=== PATIENT | female | born 1980 | race Caucasian/White ===

== ENCOUNTER 2017-06-26 20:54 | Emergency (ER) | payer OTHER ==
[~2017-06-26] VITALS: Ht 180.3 cm; Wt 77.1 kg
[~2017-06-26 20:54] MED LIST: ALBU90OI INH; AMIT50 PO; AMOX875 PO; AZIT250 PO; BENTYL10 MG PO; BUPR1 PO; Bactrim Ds Tab1 EACH PO; Buspirone HCl7.5 MG PO; CEPH500 PO; CIPR500 PO; CRUTCH4 USE; CYCL10 PO; Cipro500 MG PO; DIAZ5 PO; DULO30 PO; HYDACE5 PO; HYDCOR2.5C PR; HYDPAM25 PO; HYDPAM50 PO; IBUP800 PO; Keflex500 MG PO; LORA1 PO; METPRE4DP PO; Miconazole 31 EACH VAG; NAPR500 PO; NAPR550 PO; NITR100CA PO; OMEP20ER PO; OXYACE5T PO; OXYC15ER PO; OXYC30ER PO; PENVK500 PO; PERM5TC TOP; PHENA100 PO; PHENA200 PO; Percocet 5-3251 EACH PO; RANI150 PO; RXCYCL10 PO; RXHYDACE PO; RXNAPNA550 PO; SERT100 PO; SERT50 PO; TRAM50 PO; Ultram50 MG PO; Zofran Odt4 MG SL; Zoloft100 MG PO; Zovirax200 MG PO; [UNRECOGNIZED DRUG - OTHER]
[2017-06-26] MEDS ORDERED: IBUP800 PO (21:53)
== END 2017-06-26 21:58 | disposition home or self-care (01) ==
LOC: ER 20:54
DX: S20.211A Contusion of right front wall of thorax, initial encounter (principal); W19.XXXA Unspecified fall, initial encounter; F41.9 Anxiety disorder, unspecified; F17.210 Nicotine dependence, cigarettes, uncomplicated
CPT/HCPCS: 71101

== ENCOUNTER 2020-02-17 18:41 | Emergency (ER) | payer OTHER ==
[~2020-02-17] VITALS: Ht 180.3 cm; Wt 93.4 kg
[~2020-02-17 18:41] MED LIST changes: +Flagyl500 MG PO
[2020-02-17 19:03] LABS: Source, Urine Clean Catch
[2020-02-17 19:06] LABS: Appearance, Urine Cloudy (Clear); Blood, Urine 2+ (Neg); Color, Urine Amber (P-Yellow); Glucose Qualitative, Urine Neg (Neg); Ketones, Urine Neg (Neg); Leukocyte Esterase, Urine 2+ (Neg); Nitrite, Urine Pos (Neg); Protein, Urine 2+ (Neg); Specific Gravity, Urine 1.025 (1.003-1.022); Urobilinogen, Urine 1+ (Normal)
[2020-02-17 19:14] LABS: Bilirubin, Urine 1+ (Neg)
[2020-02-17 19:16] LABS: Squamous Epithelial Cells Rare /hpf (Few)
[2020-02-17 19:17] LABS: Bacteria Many /hpf; Mucus Light (0-Heavy)
[2020-02-17] MEDS ORDERED: CEPH500 PO (21:23)
[2020-02-17] MEDS ORDERED: Bactrim Ds Tab1 EACH PO (21:23)
== END 2020-02-17 21:36 | disposition home or self-care (01) ==
LOC: ER 18:41
PROVIDERS: Emergency Medicine
DX: N39.0 Urinary tract infection, site not specified (principal); L02.414 Cutaneous abscess of left upper limb; L03.114 Cellulitis of left upper limb; F17.210 Nicotine dependence, cigarettes, uncomplicated
CPT/HCPCS: 81001; 81025; 87077; 87086; 87186; A9270-GY

== ENCOUNTER → 2022-09-12 | Outpatient (CLI) | payer OTHER ==
[2022-09-13 08:49] LABS: Candida species (DNA Probe) Negative (NEGATIVE); G. vaginalis (DNA Probe) Negative (NEGATIVE); T. vaginalis (DNA Probe) Negative (NEGATIVE)
== END ==
LOC: LAB SHORT 16:58 → LAB 16:58
PROVIDERS: Registered Nurse
DX: Z01.419 Encounter for gynecological examination (general) (routine) without abnormal findings (principal)
CPT/HCPCS: 87480; 87510; 87660